=== PATIENT | female | born 2000 | race Hispanic/Latino ===

== ENCOUNTER 2020-09-02 16:25 | Emergency (ER) | payer OTHER ==
[~2020-09-02] VITALS: Ht 162.6 cm; Wt 124.7 kg
[2020-09-02] MEDS ORDERED: KETOROLAC TROMETHAMINE 60 MG/2 ML VIAL IM ONE (17:30)
[2020-09-02] MEDS ORDERED: PREDNISONE 20 MG TAB PO ONE (17:30)
[2020-09-02] MEDS ORDERED: DIAZEPAM 5 MG TAB PO ONE (17:45)
[2020-09-02] MEDS ORDERED: NAPROXEN250 MG PO (18:40)
[2020-09-02] MEDS ORDERED: ROBAXIN-750750 MG PO (18:40)
[2020-09-03] MEDS ORDERED: DIAZEPAM 5 MG TAB PO SCH (09:00)
== END 2020-09-02 19:06 | disposition home or self-care (01) ==
LOC: ER 17:19
DX: S16.1XXA Strain of muscle, fascia and tendon at neck level, initial encounter (principal); M62.830 Muscle spasm of back; V43.52XA Car driver injured in collision with other type car in traffic accident, initial encounter; Y92.488 Other paved roadways as the place of occurrence of the external cause; F41.9 Anxiety disorder, unspecified; L30.9 Dermatitis, unspecified
CPT/HCPCS: 70450; 72125; 99283; J1885; J7512